=== PATIENT | male | born 1980 | race Caucasian/White ===

== ENCOUNTER 2016-12-13 08:34 | Inpatient (IN) | payer OTHER, MEDICAID ==
[~2016-12-13] VITALS: Ht 170.2 cm; Wt 90.7 kg
[2016-12-13] MEDS ORDERED: MOTRIN800 MG PO (09:14)
[2016-12-13] MEDS ORDERED: PRILOSEC40 MG PO (09:14)
[2016-12-13] MEDS ORDERED: BUPIVACAINE-MPF/EPI 0.25% 30 ML VIAL INJ ONE (09:31)
[2016-12-13] MEDS ORDERED: LIDOCAINE 2% 100 MG/5 ML SYR IVP ONE (09:46)
[2016-12-13] MEDS ORDERED: DESFLURANE 240 ML BTL INH ONE (09:46)
[2016-12-13] MEDS ORDERED: ONDANSETRON 4 MG/2 ML VIAL ONE (09:46)
[2016-12-13] MEDS ORDERED: KETOROLAC 30 MG/ML VIAL ONE (09:46)
[2016-12-13] MEDS ORDERED: DEXAMETHASONE 4 MG/ML VIAL ONE (09:46)
[2016-12-13] MEDS ORDERED: ROCURONIUM 50 MG/5 ML VIAL IV ONE (09:46)
[2016-12-13] MEDS ORDERED: PROPOFOL 200 MG/20 ML VIAL IV ONE (09:46)
[2016-12-13] MEDS ORDERED: MIDAZOLAM 2 MG/2 ML VIAL ONE (10:00)
[2016-12-13] MEDS ORDERED: fentaNYL 0.05 MG/ML VIAL ONE (10:01)
[2016-12-13] MEDS ORDERED: HYDROmorphone 1 MG/ML AMP IVP PRN (10:35)
[2016-12-13] MEDS ORDERED: ONDANSETRON 4 MG/2 ML VIAL IVP PRN (10:35)
[2016-12-13] MEDS: NACL 0.9% 1,000 ML IV SCH ×2 (12:57→20:06)
[2016-12-13] MEDS ORDERED: MORPHINE SULFATE 2 MG/ML SYR IVP PRN (13:00)
[2016-12-13] MEDS ORDERED: ACETAMINOPHEN 325 MG TAB PO PRN (13:00)
[2016-12-13] MEDS ORDERED: ONDANSETRON 4 MG/2 ML VIAL IV PRN (13:00)
[2016-12-13] MEDS ORDERED: HYDROcodone/APAP 5/325 MG 1 TAB TAB PO PRN (13:00)
[2016-12-13] MEDS: HYDROmorphone PFS 2 MG/ML SYR ONE ×4 (13:05→13:35)
--- NOTE | 2016-12-13 13:50 | NUR ---
RECEIVED PATIENT FROM OR S/P [facility] WITH GALILEA MONTALVO, WITH CHIEF COMPLAINING OF ABD PAIN. PATIENT APPEARED TO BE CALM AWAKE AND RESTING WELL IN BED. NO SIGN OF SOB OR RESPIRATORY DISTRESS NOTED. INITIAL ASSESSMENT DONE. PATIENT HAS 5 BANDAGES AND 1 4X4 DRY AND INTACT DRESSING TO ABD. PATIENT STATED STILL HAVING PAIN. TOLD PATIENT WILL GIVE MEDICATION WHEN SCHEDULED. PATIENT HAS IV 20G TO RIGHT AC INFUSING WELL WITH IVF. REORIENTED PATIENT WITH CURRENT UNIT. PLAN OF CARE, PAIN MANAGEMENT AND MEDICATION REGIMENTS DISCUSSED, PATIENT VERBALIZED UNDERSTANDING. FAMILY MEMBERS AT BEDSIDE. CALL LIGHT WITHIN REACH. WILL CONTINUE TO MONITOR.
[2016-12-13] MEDS: MORPHINE SULFATE 4 MG/ML SYR IV PRN (14:51)
[2016-12-13 16:00] VITALS: BP 141/80
--- NOTE | 2016-12-13 16:50 | NUR ---
TOLD PATIENT THAT WILL GIVE PAIN MEDICATION WHEN DUE. PATIENT VERBALIZED UNDERSTANDING.
--- NOTE | 2016-12-13 17:36 | NUR ---
RECEIVED TELEPHONE ORDER FROM DR OH. CALERO FOR FULL LIQUID DIET FOR PATIENT.
--- NOTE | 2016-12-13 18:41 | NUR ---
EMPTIED 15ML OF SANGUINEOUS FROM CRYSTAL GRAINAGE.
--- NOTE | 2016-12-13 19:11 | NUR ---
ENDORSED PATIENT CURRENT PLAN OF CARE TO NIGHT NURSE ALFREDO MOSLEY. PATIENT RESTING WELL IN BED, NO SIGN OF DISTRESS NOTED. FAMILY MEMBERS AT BEDSIDE.
--- NOTE | 2016-12-13 19:13 | NUR ---
RECD. RESTING IN BED, AWAKE, A/OX4. RESPIRATION EVEN AND UNLABORED. IV OF NS AT 140 ML/HR INFUSING RIGHT HAND G20. INCISION IN THE ABDOMEN 4, ALL COVERED WITH BAND AID DRESSING, WITH 1 CRYSTAL DRAINING SEROSANGUINEOUS FLUID, MINIMAL AMOUNT. TOLERATING FULL LIQUID DIET. ABLE TO VOID 150 ML CLOUDY, LIGHT TEA COLORED URINE. ENCOURAGED TO DRINK MORE FLUIDS. PAIN IN THE ABDOMEN 1/10, AGGRAVATED BY MOVEMENT. WILL MEDICATE ORDERED. PLAN OF CARE FOR THE SHIFT DISCUSSED. VERBALIZED UNDERSTANDING. FAMILY AT THE BEDSIDE.
[2016-12-13] MEDS: HYDROmorphone 1 MG/ML AMP IVP PRN (19:53)
[2016-12-13 20:00] VITALS: BP 149/88
--- NOTE | 2016-12-13 20:00 | NUR ---
Patient's Plan of Care was discussed and reviewed with MEDICAL EDUCATOR: ALFREDO MDAERA
--- NOTE | 2016-12-13 20:30 | NUR ---
ENCOURAGE TO GET OUT OF BED AND AMBULATE FOR FASTER RECOVERY. REFUSED, WANTS TO DO IT TOMORROW.
--- NOTE | 2016-12-13 21:30 | NUR ---
DR. RAINES CAME AND CHECKED PATIENT, NO NEW ORDER MADE.
--- NOTE | 2016-12-13 22:30 | NUR ---
WATCHING TV. KNOWS HOW TO USE INCENTIVE SPIROMETER.
--- NOTE | 2016-12-14 | NUR ---
VS STABLE. STILL AWAKE, WATCHING TV.
[2016-12-14 00:11] VITALS: BP 131/67
[2016-12-14] MEDS: HYDROmorphone 1 MG/ML AMP IVP PRN ×5 (00:14→23:21)
[2016-12-14] MEDS: NACL 0.9% 1,000 ML IV SCH ×3 (04:12→13:44)
[2016-12-14 04:19] VITALS: BP 139/75
--- NOTE | 2016-12-14 04:30 | NUR ---
AWAKE, REMINDED TO AMBULATE IN THE HALLWAY TODAY, AGREED.
--- NOTE | 2016-12-14 06:35 | NUR ---
EMPTIED TOTAL OF 20 ML SEROSANGUINEOUS FLUID FROM CRYSTAL DRAIN.
--- NOTE | 2016-12-14 07:20 | NUR ---
RECEIVED REPORT FROM DIMITRI FUENTES. PT IS AAOX4. PT ON ON ROOM AIR WITH NO S/S OF DISTRESS NOTED. IV TO RIGHT FA #22, PATENT AND INTACT. X5 BANDAIDS NOTED AND 1 CRYSTAL DRAIN. NO N/V OR PAIN INDICATED. ALL SAFETY PRECAUTIONS IN PLACE, SIDE RAILSX2, BED IN LOW POSITION, AND CALL LIGHT WITHIN REACH. WILL CONTINUE TO MONITOR.
[2016-12-14 08:00] VITALS: BP 142/90
--- NOTE | 2016-12-14 09:39 | NUR ---
PT C/O 10/10 PAIN TO ABDOMEN. BP 136/86, HR 90. ADMINISTERED DILAUDID ORDERED. PT TOLERATED WELL. WILL CONTINUE TO MONITOR.
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
[2016-12-14] MEDS: MORPHINE SULFATE 4 MG/ML SYR IV PRN (13:44)
--- NOTE | 2016-12-14 13:52 | NUR ---
PT C/O 10/10 PAIN TO ABDOMEN. BP 150/89, HR 94. ADMINISTERED MORPHINE ORDERED. WILL CONTINUE TO MONITOR.
--- NOTE | 2016-12-14 14:02 | NUR ---
TALKED TO DR RAINES. PT TO START ON LEVAQUIN 750 MG IV QDAY, AND DRAW CBC FOR TOMORROW. OK TO PERFORM DRESSING CHANGE.
[2016-12-14] MEDS: LEVOFLOXACIN 750 MG/D5W PREMIX 150 ML IV SCH (14:59)
--- NOTE | 2016-12-14 15:03 | NUR ---
PT TOLERATED MEDS WELL. WILL CONTINUE TO MONITOR.
[2016-12-14 16:00] VITALS: BP 152/88
--- NOTE | 2016-12-14 18:12 | NUR ---
PAGED DR RAINES, AWAITING CALLBACK.
--- NOTE | 2016-12-14 18:50 | NUR ---
TALKED TO DR RAINES, ORDERED TO PLACE CT ABD/PELVIS WITH OUT CONTRAST STAT. TO SEE PT LATER TODAY.
--- NOTE | 2016-12-14 19:09 | NUR ---
ENDORSED CARE TO MORENO LUNA. PT IN STABLE CONDITION.
--- NOTE | 2016-12-14 19:10 | NUR ---
PT TAKEN OUT OF UNIT FOR CT OF THE ABDOMEN/PELVIS.
--- NOTE | 2016-12-14 19:15 | NUR ---
RECEIVED REPORT FROM MORENO Caal AT BEDSIDE. INITIAL ASSESSMENT COMPLETED. PT AAOX4. PT HAS IV TO RIGHT FOREARM G 22; ASYMPTOMATIC, PATENT AND INTACT INFUSING FLUIDS WELL. FAMILY AT BEDSIDE. PT HAS 5 ABDOMINAL INCISIONS S/P LAP [facility]. PT HAS CRYSTAL DRAIN TO RIGHT LOWER ABDOMEN. PT AMBULATES WITH STEADY GAIT. PT HAS SCDS ON. ORIENTED PT TO ROOM AND SURROUNDINGS AND USE OF CALL LIGHT. EXPLAINED PLAN OF CARE TO PT. CALL LIGHT WITHIN REACH.
[2016-12-14 20:00] VITALS: BP 125/104
--- NOTE | 2016-12-14 22:03 | NUR ---
PT COMPLAINING OF ABDOMINAL PAIN 07/06. VS WITHIN NORMAL, WILL MEDICATE ORDERED.
--- NOTE | 2016-12-14 22:58 | NUR ---
PT REQUESTED TO HAVE SCDS REMOVED. HE STATED THAT THEY BOTHERED HIM. I EXPLAINED TO PT THE BENEFITS OF HAVING SCDS ON, BUT HE REFUSES TO HAVE THEM ON AT THIS TIME. CALL LIGHT WITHIN REACH.
--- NOTE | 2016-12-15 00:25 | NUR ---
CHECKED ON PT, PT SLEEPING AT THIS TIME. NO SIGNS OF DISTRESS/DISCOMFORT NOTED. CALL LIGHT WITHIN REACH. WILL CONTINUE TO MONITOR PT.
--- NOTE | 2016-12-15 00:50 | NUR ---
PT HAS SCDS BACK ON. WILL CONTINUE TO MONITOR PT.
[2016-12-15] MEDS: NACL 0.9% 1,000 ML IV SCH ×3 (01:16→13:27)
--- NOTE | 2016-12-15 03:15 | NUR ---
PT COMPLAINING OF ABDOMINAL PAIN 08/06. VS WITHIN NORMAL RANGE. WILL MEDICATE ORDERED.
[2016-12-15] MEDS: HYDROmorphone 1 MG/ML AMP IVP PRN ×2 (03:18→09:04)
--- NOTE | 2016-12-15 05:30 | NUR ---
CHECKED ON PT, PT IS SLEEPING. NO SIGNS OF DISTRESS NOTED. CALL LIGHT WITHIN REACH.
--- NOTE | 2016-12-15 07:20 | NUR ---
ENDORSED PT IN STABLE CONDITION TO MORENO Caal FOR CONTINUITY OF CARE.
--- NOTE | 2016-12-15 07:21 | NUR ---
RECEIVED REPORT FROM MORENO LUNA. PT IS AAOX4. PT ON ROOM AIR WITH NO S/S OF DISTRESS NOTED. IV TO RIGHT FA #22, PATENT AND INTACT. NO N/V OR PAIN INDICATED. X5 BANDAIDS NOTED WITH AND 1 CRYSTAL DRAIN. ALL SAFETY PRECAUTIONS IN PLACE, SIDE RAILSX2, BED IN LOW POSITION, AND CALL LIGHT WITHIN REACH. WILL CONTINUE TO MONITOR.
[2016-12-15 08:00] VITALS: BP 136/91
--- NOTE | 2016-12-15 08:46 | NUR ---
PATIENT HAS BEEN SCREENED AND CATEGORIZED HIGH NUTRITION RISK. PATIENT WILL BE SEEN WITHIN 1-2 DAYS OF ADMISSION. 12/14/16-12/15/[address]
--- NOTE | 2016-12-15 09:08 | NUR ---
PT TOLERATED MEDS WELL. BP 143/89, HR 105. PT C/O 9/10 PAIN TO ABDOMEN. WILL CONTINUE TO MONITOR.
--- NOTE | 2016-12-15 10:46 | NUR ---
PAGED DR RAINES, AWAITING CALL BACK.
--- NOTE | 2016-12-15 11:11 | NUR ---
TALKED TO DR RAINES, WILL FOLLOW UP ON ORDERS.
[2016-12-15] MEDS: oxyCODONE/APAP 5/325 MG 1 TAB TAB PO PRN ×2 (11:30→15:44)
--- NOTE | 2016-12-15 11:33 | NUR ---
PT C/O 08/06 PAIN. ADMINISTERED PERCOCET AT ORDERED. BP 130/90, HR 102. WILL CONTINUE TO MONITOR.
--- NOTE | 2016-12-15 12:52 | NUR ---
12/15/16 RD INITIAL ASSESSMENT COMPLETED PLEASE REFER TO NUTRITION ASSESSMENT UNDER CARE ACTIVITY FOR ESTIMATED NUTRITIONAL NEEDS. RD RECOMMENDATIONS: 1. CONTINUE FULL LIQUID DIET MEDICALLY APPROPRIATE 2. WHEN APPROPRIATE CONSIDER ADVANCED DIET TOLERATED TO REGULAR 3. RD WILL F/U 5-7 DAYS; LOW RISK. ANALISA BARBER RD
--- NOTE | 2016-12-15 12:57 | NUR ---
TALKED TO PT. PT STATED SHE STARTED FEELING BETTER. WILL CONTINUE TO MONITOR.
[2016-12-15] MEDS: LEVOFLOXACIN 750 MG/D5W PREMIX 150 ML IV SCH (13:21)
--- NOTE | 2016-12-15 13:38 | NUR ---
PT TOLERATED MEDS WELL. WILL CONTINUE TO MONITOR.
--- NOTE | 2016-12-15 14:00 | NUR ---
IV TO RIGHT FA INFILTRATION, IV REMOVED WITH CANNULA INTACT. NEW IV TO LEFT AC #20, PATENT AND INTACT. DR RAINES IN TO SEE PT. PT TO BE DISCHARGED. WILL FOLLOW UP.
--- NOTE | 2016-12-15 14:46 | NUR ---
CRYSTAL DRAIN REMOVED, 15 ML SANGUINEOUS FLUID NOTED. PT TOLERATED PROCEDURE WELL. WILL FOLLOW UP WITH DISCHARGE.
[2016-12-15] MEDS ORDERED: PERCOCET 5/3251 TAB PO (15:29)
--- NOTE | 2016-12-15 15:46 | NUR ---
PT C/O 07/06 PAIN TO ABDOMEN. ADMINISTERED PERCOCET ORDERED. VSS. WILL CONTINUE TO MONITOR.
[2016-12-15 16:00] VITALS: BP 140/83
--- NOTE | 2016-12-15 16:00 | NUR ---
PT HAS BEEN DISCHARGED. ALL PAPERWORK SIGNED. ALL QUESTIONS ANSWERED. ALL BELONGING AND PRESCRIPTION IN PT POSSESSION. IV DC'ED WITH CANULA INTACT. WRISTBANDS REMOVED. NOTIFIED COTTON WASHER, SEEN BY ADMITTING. PT WHEELED OUT OF UNIT WITH FAMILY PRESENT AT BEDSIDE. PT AMBULATED TO VEHICLE WITH STEADY GAIT. PT IN STABLE CONDITION. PT TO F/U WITH DR RAINES ON 12/26/16, INFORMATION PROVIDED.
== END 2016-12-15 16:00 | disposition home or self-care (01) | DRG 417 ==
LOC: MDS 08:34 → EDSEX 08:34 → MMU 08:35 → MTU 13:00 → MDS 13:00 → MTU 13:02
PROVIDERS: ADMIT Surgery; ATTEND Surgery
PROC: 0DNS4ZZ (ICD-10-PCS; 2016-12-13)
PROC: 0FN04ZZ Release Liver, Percutaneous Endoscopic Approach (ICD-10-PCS; 2016-12-13)
PROC: 0FT44ZZ Resection of Gallbladder, Percutaneous Endoscopic Approach (ICD-10-PCS; principal; 2016-12-13 08:50)
DX: K80.20 Calculus of gallbladder without cholecystitis without obstruction (principal); A41.9 Sepsis, unspecified organism; K66.0 Peritoneal adhesions (postprocedural) (postinfection); K21.9 Gastro-esophageal reflux disease without esophagitis; E66.9 Obesity, unspecified; F17.210 Nicotine dependence, cigarettes, uncomplicated; J44.9 Chronic obstructive pulmonary disease, unspecified; Z68.31 Body mass index [BMI] 31.0-31.9, adult